=== PATIENT | male | born 1980 | race African-American/Black ===

== ENCOUNTER 2016-05-11 23:44 | Emergency (ER) | payer SELFPAY ==
[2016-05-12 00:02] VITALS: O2SAT 100
[2016-05-12] MEDS ORDERED: ONDANSETRON INJ 4 MG/2 ML VIAL ONE (00:25)
--- NOTE | 2016-05-12 00:25 | ED.PDOC ---
History of Present Illness - General Chief Complaint: GI Problem Stated Complaint: vomiting with blood Time Seen by Provider: 05/12/16 00:10 Source: patient, family Exam Limitations: no limitations - History of Present Illness Initial Comments: Patient presents with N/V x 5 days. His vomitus in the last few days has consisted of bright blood and "blood clots". He has had black tarry stools. He says that he cannot eat anything and "hold it down". He has lost 24 pounds in the last month. No significant past medical history. No similarly sick contacts. Timing/Duration: 1 week Severity: moderate Improving Factors: nothing Worsening Factors: eating Associated Symptoms: nausea/vomiting Allergies/Adverse Reactions: Allergies NO KNOWN ALLERGY Allergy (Verified 01/10/15 14:16) Home Medications: Ambulatory Orders Clonazepam 0.5 mg PO PRN PRN 05/12/16 Ondansetron [Zofran Odt] 4 mg PO Q4HR #20 tab 05/12/16 Oxycodone HCl [Oxycontin] 40 mg PO PRN PRN 05/12/16 Review of Systems - Review of Systems Constitutional: States: no symptoms reported EENTM: States: no symptoms reported Respiratory: States: no symptoms reported Cardiology: States: no symptoms reported Gastrointestinal/Abdominal: States: see HPI Genitourinary: States: no symptoms reported Musculoskeletal: States: no symptoms reported Skin: States: no symptoms reported Neurological: States: no symptoms reported Endocrine: States: no symptoms reported Hematologic/Lymphatic: States: no symptoms reported Past Medical History (General) - Patient Medical History Hx Seizures: No Hx Stroke: No Hx Asthma: Yes Hx Congestive Heart Failure: No Hx Hypertension: No Hx Diabetes: No Hx Gastroesophageal Reflux: Yes Hx MRSA: No Surgical History: appendectomy - Vaccination History Hx Tetanus, Diphtheria Vaccination: No Hx Influenza Vaccination: No Hx Pneumococcal Vaccination: No Immunizations Up to Date: Yes - Social History Hx Tobacco Use: Yes Family Medical History - Family History Mother Family History: Unknown Living Status: Still Living Physical Exam - Physical Exam General Appearance: Alert Respiratory: lungs clear Cardiovascular/Chest: regular rate, rhythm Gastrointestinal/Abdominal: normal bowel sounds, non tender, soft Back Exam: normal inspection, no CVA tenderness Extremity: normal range of motion, non-tender, normal inspection Neurologic: no motor/sensory deficits, alert, normal mood/affect Skin Exam: normal color Lymphatic: no adenopathy Departure - Departure Clinical Impression: Gastritis, Hematemesis Disposition: Discharge to Home or Self Care Condition: Good Departure Forms: ED Discharge - Pt. Copy, Patient Portal Self Enrollment Diet: resume usual diet Activity: increase activity as tolerated Prescriptions: Ondansetron [Zofran Odt] 4 mg PO Q4HR #20 tab Home Medications: Ambulatory Orders Clonazepam 0.5 mg PO PRN PRN 05/12/16 Ondansetron [Zofran Odt] 4 mg PO Q4HR #20 tab 05/12/16 Oxycodone HCl [Oxycontin] 40 mg PO PRN PRN 05/12/16 Additional Instructions: Take Prilosec as directed on the box for at least two weeks. Take prescription medications as directed. Increase your oral fluids. Call one of the numbers provided to get an upper endoscopy. Return to the ER immediately for increased bleeding or abdominal pain.
[2016-05-12] MEDS ORDERED: ONDANSETRON INJ 4 MG/2 ML VIAL IV ONE (00:27)
[2016-05-12] MEDS ORDERED: SODIUM CHLORIDE 0.9% 1000ML 1,000 ML IVS ONE ×2 (00:28→02:10)
[2016-05-12] MEDS ORDERED: PANTOPRAZOLE SODIUM IV 40 MG VIAL IV ONE (00:47)
--- NOTE | 2016-05-12 01:42 | CT ---
EXAM: CT abdomen and pelvis with contrast. INDICATION: Abdominal pain, acute. TECHNIQUE: Contiguous axial CT images of the abdomen and pelvis. Intravenous contrast: Present. Oral contrast: Absent. This exam was performed according to our departmental dose-optimization program, which includes automated exposure control, adjustment of the mA and/or kV according to patient size and/or use of iterative reconstruction technique. COMPARISON: None. FINDINGS: Lower chest: Partially imaged. Lung bases: Unremarkable. Cardiac apex: Unremarkable. Solid abdominal viscera: Liver: Unremarkable. Gallbladder: Unremarkable. Pancreas: Unremarkable. Spleen: Unremarkable. Adrenal glands: Unremarkable. Right kidney: No hydronephrosis. Left kidney: No hydronephrosis. Urinary bladder: Unremarkable. Abdominal aorta: Unremarkable. Peritoneal: Free fluid: None. Free air: None. Other: No pathologic sized lymph nodes in the upper abdomen. Bowel: Stomach: Unremarkable. Small bowel: Unremarkable. Appendix: Appendectomy Colon: Unremarkable. Rectum: Unremarkable. Prostate: Unremarkable. Bones: Unremarkable. IMPRESSION: 1. No CT evidence of acute process of the abdomen. Electronically signed by: Joe Hairston MD 05/12/2016 1:40 AM CDT
[2016-05-12] MEDS ORDERED: PROMETHAZINE HCL 25 MG TAB PO ONE (01:53)
[2016-05-12 03:02] VITALS: BP 112/70; TEMP 98.2
== END 2016-05-12 02:50 | disposition home or self-care (01) ==
LOC: ER 23:44
DX: K29.71 Gastritis, unspecified, with bleeding (principal); K21.9 Gastro-esophageal reflux disease without esophagitis; J45.909 Unspecified asthma, uncomplicated; Z87.891 Personal history of nicotine dependence
CPT/HCPCS: 74177; 80053; 81001; 83690; 84436; 84443; 85025; J2405; J7030; Q0169